=== PATIENT | female | born 1960 ===

== ENCOUNTER 2024-04-18 13:59 | Outpatient (AMB) | payer MEDICAID, SELFPAY ==
[2024-04-18 14:17] VITALS: BP 178/81; PULSE 70; RESP 18; TEMP 36.3; O2SAT 97; BMI 37.0
--- NOTE | 2024-04-18 14:17 | ORTHONT_ITS ---
Vital signs 04/18/24 14:17 Height 1.5 m Height Method Stated Weight 83.234 kg Weight Measurement Method Standing Scale BMI 37.0 BP 178/81 H Blood Pressure Source Automatic Cuff Blood Pressure Location Left Upper Arm Position Sitting Respiration 18 Pulse 70 Pulse Source Monitor Temp 97.4 F Temp Source Temporal Artery Scan Pulse Oximetry (%) 97 Oxygen Delivery Method Room Air Med/Allergies Allergies & Medications Allergies No Known Allergies Allergy (Verified 04/18/24 14:18) Medication Reconciliation meloxicam 7.5 mg tablet 7.5 mg PO QDAY #45 tabs 04/27/23 [Rx Confirmed 04/18/24] Exam Exam Patient is in no acute distress and is cooperative with the examination today. Breathing is nonlabored. In no respiratory distress. Bilateral extremities were evaluated and demonstrates sensation intact to light touch. Palpable pedal pulses are present. No significant edema is present. Bilateral hips were examined. The patient has no pain with log roll of the hips. Internal rotation to 30 degrees and external rotation to 30 degrees is painless. Negative FADIR. The left knee was examined. The left knee is in [varus] alignment. Range of motion from [0-115] degrees. Knee is stable to varus and valgus as well as AP translation with <5mm. Patient has a [negative] McMurrays. There is [no] pain with patellofemoral compression and [no] crepitus noted. The knee is [tender] to palpation [medially]. The right knee was also examined. The right knee is in [varus] alignment. Range of motion from [0-120] degrees. Knee is stable to varus and valgus as well as AP translation with <5mm. Patient has a [negative] McMurrays. There is [no] pain with patellofemoral compression and [no] crepitus noted. The knee is [tender] to palpation [medially]. Patient has no x-rays. She does have bilateral knee MRIs this demonstrates significant degenerative changes and varus arthritis Assessment and Plan Problem List (1) Bilateral primary osteoarthritis of knee: Status: Acute Plan: Patient is a 62-year-old female with bilateral knee pain and she has bilateral knee severe varus osteoarthritis. We recommend weight loss And she is lost a significant amount of weight. Recommend knee cortisone injections as patient would like to proceed with conservative treatment at this time. The risks and benefits of the procedure were reviewed with the patient and patient gave verbal consent to continue with the procedure. Procedure: performed by Dr. Gifford Using sterile technique the Bilateral knees were thoroughly prepped with alcohol, and approximately 1 cc of Kenalog 40 mg/mL and 4 cc of 1% lidocaine was injected into each knee without resistance into the medial tibial femoral joint space. The patient tolerated the procedure. (2) Bilateral knee pain: Status: Acute Office Procedures GNS Level of Care Nursing/Assessment Patient Status: Established Patient Nursing Assessment/Reassesment: Medication Reconciliation, Update PMH in EMR and Vital Signs Coordination of Care: Complex Care and Chronic Disease 1-5, Education Complex Pt/Fam, Consent,records obtained, informed consent, Results/Orders obtained and Staff clarify orders Established Patient Charge Established Patient Point Assignment: 95 Established Patient Point Charge: EP Level 3 (80-115) Surgical Proc/IM SQ injection Major Surgical Procedure: Yes (BILATERAL KNEE INJECTION) Medication Given Medication Given Medication Given: Yes Documented Dose Given: 8 Route: Infiitration Medication Given Medication Given Medication Given: Yes Documented Dose Given: 2 Route: Infiitration Office Meds Xylocaine 10 mg/mL (1 %) injection solution Performing Provider: William Gifford MD Performing Location: [facility] Administered by: William Gifford MD on 04/18/24 15:26 Dose Route Admin Location Dispensed Lot Number Expiration Date [facility] Counter Professional 40 mL Infiltration 40 mL [id number] 07/10/27 12989-842-77 [facility] triamcinolone acetonide 40 mg/mL suspension for injection Performing Provider: William Gifford MD Performing Location: [facility] Administered by: William Gifford MD on 04/18/24 15:26 Dose Route Admin Location Dispensed Lot Number Expiration Date [facility] Counter Professional 80 mg intra-articular 2 mL [id number] 08/08/25 2794-6714-21 [place] [facility] [place] Intake Visit Data Collection New Patient or Established: Established Patient (seen at [facility] within 3 years) Reason for Visit:: F/U BILATERAL KNEE INJECTIONS/XRAYS Seen by Clinical Staff ONLY (RN/MA): No Seamless Tube Drawer Required: No PCP or OBGYN visit in last 3 months: Yes Hx Now: No Do You Feel Safe at Home: Yes Authorities Contacted: N/A Questionairres Past Medical History Past Medical History Have you ever been diagnosed with any of the following: Respiratory Problems Smoking: No Smoking Exposure: No Subjective Visit Visit for: follow up visit, knee, x-rays and injections Immunization / Flu Flu Vaccine in the Last 12 Months: No Flu Vaccine Exclusion Criteria: No Exclusion Criteria History of Present Illness Chief complaint: bilateral knee pain Luma is a pleasant 63-year-old female with knee pain and severe bilateral knee arthritis. She has been losing weight rapidly after a gastric sleeve in September. We will wait until the weight plateaus and discussed knee replacement. She would like bilateral knee injections today Pain Pain level (0-10): 7 Pain duration: WITH MOVEMENT Pain location: inside (medial) and anterior Pain quality: aching Pain timing: night, increases with activity and stairs Associated signs & symptoms: none Ambulatory data Ambulatory device: none Treatments Number of previous injections: 3 Improvement with previous injections: Yes Improvement with PT: No Improvement with NSAIDS: no Review of Systems Review of Systems: All systems negative unless otherwise noted in HPI.
== END 2024-04-18 14:55 | disposition home or self-care (01) ==
LOC: HODSRG 13:59
PROVIDERS: Supervising Provider Orthopaedic Surgery Adult Reconstructive Orthopaedic Surgery; Visit Provider Orthopaedic Surgery Adult Reconstructive Orthopaedic Surgery
DX: M17.0 Bilateral primary osteoarthritis of knee (principal); M25.561 Pain in right knee; M25.562 Pain in left knee
CPT/HCPCS: 20610; 99213; J3301; J3490; G0463

== ENCOUNTER 2024-09-03 13:03 | Outpatient (AMB) | payer MEDICAID, SELFPAY ==
--- NOTE | 2024-09-03 13:13 | PD.ORTHCLVIS ---
Vital signs 09/03/24 13:15 Height 1.5 m Height Method Stated Weight 77.819 kg Weight Measurement Method Standing Scale BMI 34.5 BP 177/82 H Blood Pressure Source Automatic Cuff Blood Pressure Location Left Upper Arm Position Sitting Respiration 18 Pulse 66 Pulse Source Monitor Temp 97.7 F Temp Source Temporal Artery Scan Pulse Oximetry (%) 98 Oxygen Delivery Method Room Air Med/Allergies Allergies & Medications Allergies No Known Allergies Allergy (Verified 09/03/24 13:15) Medication Reconciliation meloxicam 7.5 mg tablet 7.5 mg PO QDAY #45 tabs 04/27/23 [Rx Confirmed 09/03/24] Exam Exam Patient is in no acute distress and is cooperative with the examination today. Breathing is nonlabored. In no respiratory distress. Bilateral extremities were evaluated and demonstrates sensation intact to light touch. Palpable pedal pulses are present. No significant edema is present. Bilateral hips were examined. The patient has no pain with log roll of the hips. Internal rotation to 30 degrees and external rotation to 30 degrees is painless. Negative FADIR. The left knee was examined. The left knee is in [varus] alignment. Range of motion from [0-115] degrees. Knee is stable to varus and valgus as well as AP translation with <5mm. Patient has a [negative] McMurrays. There is [no] pain with patellofemoral compression and [no] crepitus noted. The knee is [tender] to palpation [medially]. The right knee was also examined. The right knee is in [varus] alignment. Range of motion from [0-120] degrees. Knee is stable to varus and valgus as well as AP translation with <5mm. Patient has a [negative] McMurrays. There is [no] pain with patellofemoral compression and [no] crepitus noted. The knee is [tender] to palpation [medially]. Patient has no x-rays. She does have bilateral knee MRIs this demonstrates significant degenerative changes and varus arthritis Assessment and Plan Problem List (1) Bilateral primary osteoarthritis of knee: Status: Acute Plan: Patient is a 62-year-old female with bilateral knee pain and she has bilateral knee severe varus osteoarthritis. We recommend weight loss And she is lost a significant amount of weight. Recommend knee cortisone injections as patient would like to proceed with conservative treatment at this time. The risks and benefits of the procedure were reviewed with the patient and patient gave verbal consent to continue with the procedure. Procedure: performed by Dr. Gifford Using sterile technique the Bilateral knees were thoroughly prepped with alcohol, and approximately 1 cc of Kenalog 40 mg/mL and 4 cc of 1% lidocaine was injected into each knee without resistance into the medial tibial femoral joint space. The patient tolerated the procedure. (2) Bilateral knee pain: Status: Acute Office Procedures GNS Level of Care Nursing/Assessment Patient Status: Established Patient Nursing Assessment/Reassesment: Medication Reconciliation, Update PMH in EMR and Vital Signs Coordination of Care: Complex Care and Chronic Disease 1-5, Education Complex Pt/Fam, Consent,records obtained, informed consent, Results/Orders obtained and Staff clarify orders Established Patient Charge Established Patient Point Assignment: 95 Established Patient Point Charge: EP Level 3 (80-115) Surgical Proc/IM SQ injection Major Surgical Procedure: Yes (KNEE INJECTION) Medication Given Medication Given Medication Given: Yes Documented Dose Given: 8 Route: Infiitration Medication Given Medication Given Medication Given: Yes Documented Dose Given: 2 Route: Infiitration Office Meds Xylocaine 10 mg/mL (1 %) injection solution Performing Provider: William Gifford MD Performing Location: [facility] Administered by: William Gifford MD on 09/03/24 13:48 Dose Route Admin Location Dispensed Lot Number Expiration Date [facility] Refrigeration Engine Operator 40 mL Infiltration 40 mL [id number] 07/10/27 01205-599-79 [facility] triamcinolone acetonide 40 mg/mL suspension for injection Performing Provider: William Gifford MD Performing Location: [facility] Administered by: William Gifford MD on 09/03/24 13:48 Dose Route Admin Location Dispensed Lot Number Expiration Date [facility] NAMED [facility] Ref[employer] Engine Operator 80 mg intra-articular 2 mL [id number] 04/10/26 04698-212-03 [facility]UC[facility] [place] Intake Visit Data Collection New Patient or Established: Established Patient (seen at [facility] within 3 years) Reason for Visit:: BL KNEE INJECTION Seen by Clinical Staff ONLY (RN/MA): No PCP or OBGYN visit in last 3 months: Yes Hx Now: No Do You Feel Safe at Home: Yes Authorities Contacted: N/A Questionairres Past Medical History Past Medical History Have you ever been diagnosed with any of the following: Respiratory Problems Smoking: No Smoking Exposure: No Subjective Visit Visit for: follow up visit and knee (BILATERAL) Immunization / Flu Flu Vaccine in the Last 12 Months: No Flu Vaccine Exclusion Criteria: No Exclusion Criteria History of Present Illness Chief complaint: bilateral knee pain Luma is a pleasant 63-year-old female with knee pain and severe bilateral knee arthritis. She has been losing weight rapidly after a gastric sleeve in September. We will wait until the weight plateaus and discussed knee replacement. She would like bilateral knee injections today Pain Pain level (0-10): 7 Pain duration: ALL DAY Pain location: anterior Pain quality: aching Pain timing: increases with activity Associated signs & symptoms: none Ambulatory data Ambulatory device: none Treatments Number of previous injections: 3 Improvement with previous injections: No Improvement with PT: No Improvement with NSAIDS: no Review of Systems Review of Systems: All systems negative unless otherwise noted in HPI.
[2024-09-03 13:15] VITALS: BP 177/82; PULSE 66; RESP 18; TEMP 36.5; O2SAT 98; BMI 34.5
== END 2024-09-03 13:47 | disposition home or self-care (01) ==
PROVIDERS: Supervising Provider Orthopaedic Surgery Adult Reconstructive Orthopaedic Surgery; Visit Provider Orthopaedic Surgery Adult Reconstructive Orthopaedic Surgery
DX: M17.0 Bilateral primary osteoarthritis of knee (principal); M25.562 Pain in left knee; M25.561 Pain in right knee; Z98.84 Bariatric surgery status
CPT/HCPCS: 20610; 99213; J3301; J3490; G0463